=== PATIENT | male | born 1935 | race Caucasian/White ===

== ENCOUNTER → 2016-08-20 | Outpatient (CLI) | payer MEDICARE, BC | LOC: KOH-I 10:32 | DX: R05 Cough (principal) | CPT/HCPCS: 71020 ==

== ENCOUNTER → 2016-10-01 | Outpatient (CLI) | payer MEDICARE, BC | LOC: KOH-I 10:26 | DX: M25.561 Pain in right knee (principal); M25.562 Pain in left knee; M25.551 Pain in right hip; M25.552 Pain in left hip | CPT/HCPCS: 73502; 73564 ==

== ENCOUNTER 2020-09-27 09:43 | Emergency (ER) | payer MEDICARE ==
[~2020-09-27 09:43] MED LIST: ASPIRIN CHEWABL81 MG PO; COREG 12.5MG12.5 MG PO; IMDUR ER TAB 6060 MG PO; JANUVIA100 MG PO; LEVOTHYROXINE125 MC1 PO; LIPITOR80 MG PO; MEDROL4 MG PO; NOVOLIN 70100 UNIT/2 SQ; NOVOLOG FL100 UNIT/1 SQ; OMNICEF 300 MG300 MG PO; TAMSULOSIN HCL0.4 MG PO; TESSALON PERLE100 MG PO; ZESTRIL2.5 MG PO
[2020-09-27 11:21] LABS: HEMOGLOBIN 10.9 gm/dl (14.0-17.5); RED BLOOD COUNT 3.73 M/UL (4.20-5.50)
[2020-09-27] MEDS ORDERED: AZITHROMYCIN500 MG PO (16:16)
[2020-09-27] MEDS ORDERED: CEFDINIR300 MG PO (16:16)
== END 2020-09-27 16:35 | disposition home or self-care (01) ==
LOC: ER1 09:43
PROVIDERS: Physician Assistant
DX: T85.09XA Other mechanical complication of ventricular intracranial (communicating) shunt, initial encounter (principal); J18.9 Pneumonia, unspecified organism; D69.6 Thrombocytopenia, unspecified; N39.0 Urinary tract infection, site not specified; E11.649 Type 2 diabetes mellitus with hypoglycemia without coma; I10 Essential (primary) hypertension; E78.5 Hyperlipidemia, unspecified; I25.2 Old myocardial infarction; K21.9 Gastro-esophageal reflux disease without esophagitis; E03.9 Hypothyroidism, unspecified; Z85.46 Personal history of malignant neoplasm of prostate; Z85.118 Personal history of other malignant neoplasm of bronchus and lung
CPT/HCPCS: 70450; 71045; 80053; 81001; 82550; 82553; 82962; 83874; 84439; 84443; 84484; 85025; 93005; 99285

== ENCOUNTER → 2020-10-15 | Outpatient (CLI) | payer MEDICARE ==
[~2020-10-15] MED LIST changes: +AZITHROMYCIN500 MG PO; +CEFDINIR300 MG PO
== END ==
LOC: KOH-I 11:34
DX: R93.89 Abnormal findings on diagnostic imaging of other specified body structures (principal)
CPT/HCPCS: 71046

== ENCOUNTER → 2021-01-13 | Outpatient (CLI) | payer MEDICARE | LOC: KOH-I 01-06 16:00 | DX: M51.27 Other intervertebral disc displacement, lumbosacral region (principal); M48.07 Spinal stenosis, lumbosacral region; M47.816 Spondylosis without myelopathy or radiculopathy, lumbar region; M48.061 Spinal stenosis, lumbar region without neurogenic claudication | CPT/HCPCS: 72131 ==

== ENCOUNTER → 2021-03-05 | Outpatient (CLI) | payer MEDICARE | LOC: KOH-I 13:31 | DX: N20.2 Calculus of kidney with calculus of ureter (principal) | CPT/HCPCS: 74176 ==

== ENCOUNTER → 2021-07-03 | Outpatient (CLI) | payer MEDICARE | LOC: KOH-I 12:19 | DX: I25.5 Ischemic cardiomyopathy (principal) | CPT/HCPCS: 71046 ==

== ENCOUNTER → 2021-07-30 | Outpatient (CLI) | payer MEDICARE | LOC: CT 10:46 → KOH-I 08-01 14:00 | DX: R31.29 Other microscopic hematuria (principal); N32.89 Other specified disorders of bladder; N20.0 Calculus of kidney; N28.89 Other specified disorders of kidney and ureter; K80.20 Calculus of gallbladder without cholecystitis without obstruction; K74.60 Unspecified cirrhosis of liver; I72.3 Aneurysm of iliac artery ==